=== PATIENT | male | born 1960 | race Caucasian/White ===

== ENCOUNTER → 2016-08-30 | Outpatient (CLI) | payer OTHER ==
[2016-08-30 09:29] LABS: HCT 44.3 % (39.0-53.0); HDW 2.39; HGB 14.8 gm/dL (13.0-17.5); MCH 31.7 pg (25.0-35.0); MCHC 33.5 g/dL (31.0-37.0); MCV 94.5 fL (80.0-100.0); RBC 4.69 m/uL (4.30-5.90); RDW 12.8 % (11.5-15.5)
--- NOTE | 2016-08-30 09:45 | XR ---
EXAMINATION TYPE: XR chest 2V DATE OF EXAM: 08/30/2016 9:30 AM COMPARISON: 06/03/2014 HISTORY: 55-year-old male smoker, Z00.01, M25.561. TECHNIQUE: Frontal and lateral views FINDINGS: The cardiomediastinal silhouette, aorta, and pulmonary vasculature are within normal limits. Mild int erstitial prominence and mild hyperinflation. Otherwise, lungs and pleural spaces are clear. IMPRESSION: Possible underlying COPD. Otherwise, no acute process seen.
--- NOTE | 2016-08-30 09:53 | XR ---
EXAMINATION TYPE: XR knee complete bilateral DATE OF EXAM: 08/30/2016 9:30 AM COMPARISON: NONE HISTORY: 55-year-old male pain in right knee swelling for 2 months. Z00.01, M25.561 TECHNIQUE: AP weightbearing view both knees along with additional oblique and lateral view of each kn ee. FINDINGS: There is meniscal chondrocalcinosis on both sides with moderate narrowing of left greater than right medial compartment cartilage and joint space and mild narrowing of the left lateral compartment. Linda inal spurring is present especially in the medial and patellofemoral compartments. Extensor mechanism s are intact and no significant knee joint effusion is seen. No acute fracture, subluxation, or dislo cation. IMPRESSION: 1. Meniscal chondrocalcinosis probably idiopathic but can also be seen with CPPD. 2. Tricompartmental osteoarthrosis, moderate within the left greater than right medial compartments. 3. No knee joint effusion or acute osseous abnormality seen.
[2016-08-30 11:01] LABS: ALT 51 U/L (21-72); AST 27 U/L (17-59); Alkaline Phosphatase 71 U/L (38-126); Anion Gap 10 mmol/L; Blood Urea Nitrogen 11 mg/dL (9-20); Calcium 9.3 mg/dL (8.4-10.2); Carbon Dioxide 23 mmol/L (22-30); Chloride 108 mmol/L (98-107); Cholesterol 129 mg/dL (<200); Glucose 98 mg/dL (74-99); HDL Cholesterol 22 mg/dL (40-60); Non-African American GFR(MDRD) >60 (>60 ml/min/1.73 sqM); Potassium 4.6 mmol/L (3.5-5.1); Sodium 141 mmol/L (137-145); Total Bilirubin 0.8 mg/dL (0.2-1.3); Total Protein 6.8 g/dL (6.3-8.2); Triglycerides 87 mg/dL (<150)
[2016-08-30 11:26] LABS: Prostate Specific Antigen 4.39 ng/mL (0.00-4.00)
[2016-08-30 12:38] LABS: Hemoglobin A1C 5.4 % (4.2-6.1)
== END | disposition home or self-care (01) ==
LOC: LABWHC1 08:39
PROVIDERS: ATTEND Family Medicine
DX: M11.262 Other chondrocalcinosis, left knee (principal); M11.261 Other chondrocalcinosis, right knee; M17.0 Bilateral primary osteoarthritis of knee; E78.5 Hyperlipidemia, unspecified; Z12.5 Encounter for screening for malignant neoplasm of prostate; Z00.01 Encounter for general adult medical examination with abnormal findings
CPT/HCPCS: 36415; 71020; 80053; 80061; 83036; 84153; 84439; 84443; 85027

== ENCOUNTER → 2018-12-31 | Outpatient (CLI) | payer MEDICAID, OTHER ==
--- NOTE | 2019-01-01 13:57 | US ---
EXAMINATION TYPE: US scrotum with doppler. Grayscale and color Doppler Duplex imaging performed of t jeff scrotum. DATE OF EXAM: 12/31/2018 COMPARISON: NONE CLINICAL HISTORY: N50.819 Testicular pain, unspecified. 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 There is no evidence of testicular torsion. Left testicle is surgically absent. Presence of hydroceles: Small amount of fluid inferior to right testicle Presence of varicoceles: Yes, superior to right testicle Small right epi head cyst= 0.7 x 0.5 x 0.6 cm/ A few small calcifications within right testicle, ot herwise appeared wnl IMPRESSION: 1. Right-sided varicocele is seen. CT abdomen and pelvis is recommended to ensure no intra-abdominal mass creating the right-sided varicocele. 2. Benign-appearing epididymal head cyst on the right measuring 7 mm. 3. Incidentally noted right testicular microlithiasis. 4. Surgical absence of the left testes.
== END | disposition home or self-care (01) ==
LOC: RADUSMAIN 17:29
PROVIDERS: ATTEND Family Medicine
DX: I86.1 Scrotal varices (principal); N50.89 Other specified disorders of the male genital organs; N50.819 Testicular pain, unspecified; Z90.79 Acquired absence of other genital organ(s)
CPT/HCPCS: 76870; 93976